=== PATIENT | male | born 1965 | race Hispanic/Latino ===

== ENCOUNTER 2020-02-16 08:10 | Emergency (ER) | payer SELFPAY, OTHER ==
[2020-02-16] MEDS ORDERED: NA CHLORIDE 0.9% 1,000 ML ONE (08:41)
[2020-02-16 09:24] LABS: Urine Blood NEGATIVE (NEG); Urine Glucose NEGATIVE (NEG); Urine Protein TRACE (NEG); Urine Specific Gravity 1.015 (1.005-1.030)
[2020-02-16 09:33] LABS: Urine Bacteria NONE SEEN /HPF (NONE SEEN); Urine Culture Reflex Order REFLEXED; Urine Mucus LIGHT /HPF (NONE SEEN); Urine RBC NONE SEEN /HPF (NONE SEEN)
[2020-02-16 09:41] LABS: Absolute Lymphocytes (CBC) 1.1 K/uL (0.7-4.9); Basophils % 0.4 % (0-1.3); Lymphocytes % 21.6 % (15.3-44.8); MPV 10.7 fL (7.6-11.3); RBC Red Blood Cell Count 4.85 M/uL (4.33-5.43)
[2020-02-16 09:55] LABS: BUN Blood Urea Nitrogen 12 mg/dL (7-18); Bicarbonate 24 mmol/L (21-32); Glucose Level 301 mg/dL (74-106); Potassium 4.1 mmol/L (3.5-5.1); Sodium Level 139 mmol/L (136-145)
--- NOTE | 2020-02-16 10:07 | ER ---
Nurse's Notes [facility] Name: Srinivasa Baugh Age: 54 yrs Sex: Male : 1965 Arrival Date: 02/16/2020 Time: 08:14 Bed 15 Private MD: Diagnosis: Fever, unspecified;Hyperglycemia, unspecified Presentation: 02/15 08:15 Chief complaint: Patient states: fever up to 100.0 F x 2 days ago. Pt denies sore aa5 throat, denies cough, denies SOB, denies N/V/D. Pt also c/o right hip pain. Pt also reports dizziness since today. 08:15 Coronavirus screen: Patient denies a cough. Patient denies shortness of breath or aa5 difficulty breathing. Patient denies travel on a cruise ship or to a country the [facility] currently lists as an affected area. Patient denies contact with known and/or suspected case of COVID-19. Patient instructed to continue to wear a mask when interacting with others. Patient moved to private room, placed in contact and droplet isolation with eye protection until further assessment. Pt reports low grade fever. Ebola Screen: Patient negative for fever greater than or equal to 101.5 degrees Fahrenheit, and additional compatible Ebola Virus Disease symptoms. Initial Sepsis Screen: Does the patient meet any 2 criteria? No. Patient's initial sepsis screen is negative. Does the patient have a suspected source of infection? No. Patient's initial sepsis screen is negative. Risk Assessment: Do you want to hurt yourself or someone else? Patient reports no desire to harm self or others. Onset of symptoms was January 2020. 08:15 Method Of Arrival: Ambulatory aa5 08:15 Acuity: GARY 3 aa5 Historical: - Allergies: 08:15 No Known Allergies; aa5 - PMHx: 08:15 Hypertension; Diabetes - NIDDM; Hyperlipidemia; aa5 - Immunization history:: Flu vaccine is not up to date. - Social history:: Smoking status: Patient denies any tobacco usage or history of. - Family history:: not pertinent. - Hospitalizations: : No recent hospitalization is reported. Screenin:59 Abuse screen: Denies threats or abuse. Denies injuries from another. Nutritional jr10 screening: No deficits noted. Tuberculosis screening: No symptoms or risk factors identified. Fall Risk IV access (20 points). Assessment: 08:55 General: Appears in no apparent distress. comfortable, Behavior is calm, cooperative, jr10 appropriate for age. Pain: Denies pain. Neuro: Reports dizziness, that started this morning, denies n/v, CARRION or visual changes associated with dizziness. Cardiovascular: No deficits noted. Denies chest pain. Respiratory: No deficits noted. Breath sounds are clear bilaterally. Denies cough, shortness of breath. GI: Reports decreased sense in taste and smell noted since friday Patient currently denies diarrhea, intolerance of fluids, intolerance of food, nausea, vomiting. : No deficits noted. Derm: No deficits noted. Musculoskeletal: No deficits noted. Vital Signs: 08:15 BP 166 / 105; Pulse 85; Resp 16 S; Temp 99.4(O); Pulse Ox 100% on R/A; Weight 71.21 kg aa5 (R); Height 5 ft. 2 in. (157.48 cm) (R); Pain 5/10; 08:57 BP 166 / 105; Pulse 77; Resp 20; Pulse Ox 99% on R/A; Pain 0/10; jr10 09:18 BP 141 / 92; Pulse 75; Resp 20; Pulse Ox 99% ; jr10 10:23 BP 128 / 86; Pulse 77; Resp 20; Temp 99.1; Pulse Ox 99% ; Pain 0/10; jr10 08:15 Body Mass Index 28.72 (71.21 kg, 157.48 cm) aa5 ED Course: 08:14 Patient arrived in ED. mr 08:15 Delvin Mancini MD is Attending Physician. rn 08:15 Arm band placed on. aa5 08:27 Barbara Vivar RN is Primary Nurse. jr10 08:28 Triage completed. aa5 08:59 Patient has correct armband on for positive identification. Placed in gown. Bed in low jr10 position. Call light in reach. Side rails up X2. 08:59 No provider procedures requiring assistance completed. Inserted saline lock: 20 gauge jr10 in right hand, using aseptic technique. IV Flushed. 10:30 IV discontinued, No redness/swelling at site. Pressure dressing applied. jr10 Administered Medications: 08:54 Drug: NS 0.9% 1000 ml Route: IV; Rate: 1000 ml; Site: right hand; jr10 10:00 Follow up: Response: No adverse reaction; IV Status: Completed infusion jr10 Outcome: 10:05 Discharge ordered by . rn 10:29 Discharged to home ambulatory. jr10 10:29 Condition: good 10:29 Discharge instructions given to patient, Demonstrated understanding of instructions, follow-up care. 10:30 Patient left the ED. jr10 Addendum: 02/17/2020 18:45 Addendum: COVID-19 Result: Positive result giiven to ED physician to notify pt. ronit g Physician: Lew Prieto MD Physician was able to contact pt and pt was notified of positive COVID-19 swab result. Physician answered pt questions. Signatures: Leonardo Chowdhury RN RN Mariama Rdoriguez Roman, MD MD rn Calderon, Audri RN RN aa5 Barbara Vivar RN RN jr10 Corrections: (The following items were deleted from the chart) 19:48 19:47 Addendum: COVID-19 Result: Positive result giiven to ED physician to notify pt. sg Physician: Lew Prieto MD Physician was able to contact pt and pt was notified of positive COVID-19 swab result. Physician answered pt questions. sg
--- NOTE | 2020-02-16 10:07 | EDPHYS ---
Physician Documentation [facility] Name: Srinivasa Baugh Age: 54 yrs Sex: Male : 1965 Arrival Date: 02/16/2020 Time: 08:14 Bed 15 Private MD: ED Physician Delvin Mancini HPI: 02/15 08:23 This 54 yrs old Male presents to ER via Unassigned with complaints of Fever. rn 08:23 The patient reports fever, that was measured at 100 degrees Fahrenheit. Onset: The rn symptoms/episode began/occurred 2 day(s) ago. Modifying factors: there are no obvious modifying factors. Severity of symptoms: At their worst the symptoms were mild in the emergency department the symptoms are unchanged. The patient has not experienced similar symptoms in the past. Reports 2 days of fever, tmax 100, assoc with lightheadedness, no headache/syncope/focal neuro complaint/sore throat/congestion/cough/sob/abd pain/vomiting/diarrhea/rash. Does report increased urinary frequency but attributes it to elevated blood sugar, has been running in [employer] lately. Has been working, and son exposed to positive COVID-19 patient at workplace. . Historical: - Allergies: 08:15 No Known Allergies; aa5 - PMHx: 08:15 Hypertension; Diabetes - NIDDM; Hyperlipidemia; aa5 - Immunization history:: Flu vaccine is not up to date. - Social history:: Smoking status: Patient denies any tobacco usage or history of. - Family history:: not pertinent. - Hospitalizations: : No recent hospitalization is reported. ROS: 08:23 Constitutional: Negative for chills, and weight loss, Eyes: Negative for injury, pain, rn redness, and discharge, Neck: Negative for injury, pain, and swelling, Cardiovascular: Negative for chest pain, palpitations, and edema, Respiratory: Negative for shortness of breath, cough, wheezing, and pleuritic chest pain, Abdomen/GI: Negative for abdominal pain, nausea, vomiting, diarrhea, and constipation, Back: Negative for injury and pain, : Negative for injury, bleeding, discharge, and swelling, MS/Extremity: Negative for injury and deformity, Skin: Negative for injury, rash, and discoloration, Neuro: Negative for headache, weakness, numbness, tingling, and seizure. Exam: 08:23 Constitutional: This is a well developed, well nourished patient who is awake, alert, rn and in no acute distress. Head/Face: Normocephalic, atraumatic. ENT: NO stridor Cardiovascular: Regular rate and rhythm. No pulse deficits. Respiratory: No increased work of breathing, no retractions or nasal flaring. Abdomen/GI: soft, non-tender MS/ Extremity: Pulses equal, no cyanosis. Neurovascular intact. Full, normal range of motion. Equal circumference. Neuro: Awake and alert, GCS 15, oriented to person, place, time, and situation. Cranial nerves II-XII grossly intact. Motor strength 5/5 in all extremities. Sensory grossly intact. Cerebellar exam normal. Normal gait. Vital Signs: 08:15 BP 166 / 105; Pulse 85; Resp 16 S; Temp 99.4(O); Pulse Ox 100% on R/A; Weight 71.21 kg aa5 (R); Height 5 ft. 2 in. (157.48 cm) (R); Pain 5/10; 08:57 BP 166 / 105; Pulse 77; Resp 20; Pulse Ox 99% on R/A; Pain 0/10; jr10 09:18 BP 141 / 92; Pulse 75; Resp 20; Pulse Ox 99% ; jr10 10:23 BP 128 / 86; Pulse 77; Resp 20; Temp 99.1; Pulse Ox 99% ; Pain 0/10; jr10 08:15 Body Mass Index 28.72 (71.21 kg, 157.48 cm) aa5 MDM: 08:15 Patient medically screened. rn 10:04 Differential diagnosis: viral Infection, UTI, COVID. Data reviewed: vital signs, nurses rn notes, lab test result(s), and as a result, I will discharge patient. Counseling: I had a detailed discussion with the patient and/or guardian regarding: the historical points, exam findings, and any diagnostic results supporting the discharge/admit diagnosis, lab results, the need for outpatient follow up, to return to the emergency department if symptoms worsen or persist or if there are any questions or concerns that arise at home. Special discussion: I discussed with the patient/guardian in detail that at this point there is no indication for admission to the hospital. It is understood, however, that if the symptoms persist or worsen the patient needs to return immediately for re-evaluation. ED course: Pt with mild hyperglycemia, no AG or acidosis, no ketones in urine, neg UA for infection, tested for covid given possible exposure, loss of taste and smell, and low grade fever, will call with results. Until results obtained, needs to quarantine to decrease spread. . 02/15 08:23 Order name: COVID-19 rn 02/15 08:23 Order name: CBC with Diff; Complete Time: 09:52 rn 02/15 08:23 Order name: Basic Metabolic Panel; Complete Time: 10:04 rn 02/15 08:23 Order name: Urine Microscopic Only; Complete Time: 09:52 rn 02/15 09:12 Order name: Urine Dipstick--Ancillary (enter results); Complete Time: 09:52 bd 02/15 09:34 Order name: Urine Culture [facility] 02/15 08:23 Order name: IV Start; Complete Time: 08:54 rn 02/15 08:23 Order name: Urine Dipstick-Ancillary (obtain specimen); Complete Time: 09:15 02/15 09:16 Order name: Labs - recollect needed: recollect cbc and c7; Complete Time: 09:36 bd Administered Medications: 08:54 Drug: NS 0.9% 1000 ml Route: IV; Rate: 1000 ml; Site: right hand; [facility] [place] 10:00 Follow up: Response: No adverse reaction; IV Status: Completed infusion jr10 Disposition: 02/16/20 10:05 Discharged to Home. Impression: Fever, unspecified, Hyperglycemia, unspecified. - Condition is Stable. - Discharge Instructions: Fever, Adult, Hyperglycemia, COVID-19. - Medication Reconciliation Form, Thank You Letter, Antibiotic Education, Prescription Opioid Use form. - Work release form (02/16/20 11:11). kb - Follow up: Private Physician; When: As needed; Reason: Recheck today's complaints, Re-evaluation by your physician. - Problem is new. - Symptoms have improved. Signatures: Dispatcher [employer] EDMS Kirstie Kemp Roman, MD MD rn Calderon, Audri, RN RN aa5 Barbara Vivar, RN RN jr10 Graciela Escalera COP[employer]ITER[employer]kb Corrections: (The following items were deleted from the chart) 10:30 10:05 02/16/2020 10:05 Discharged to Home. Impression: Fever, unspecified; jr10 Hyperglycemia, unspecified. Condition is Stable. Forms are Medication Reconciliation Form, Thank You Letter, Antibiotic Education, Prescription Opioid Use. Follow up: Private Physician; When: As needed; Reason: Recheck today's complaints, Re-evaluation by your physician. Problem is new. Symptoms have improved. rn
[2020-02-16 20:14] VITALS: O2SAT 99
[2020-02-16 20:17] VITALS: BP 128/86; TEMP 99.1
== END 2020-02-16 10:30 | disposition home or self-care (01) ==
LOC: ER 08:10
DX: U07.1 COVID-19 (principal); R50.9 Fever, unspecified; E11.65 Type 2 diabetes mellitus with hyperglycemia
CPT/HCPCS: 36415; 80048; 81003; 81015; 85025; 87086; 87088; 96360; 99283; J7030; U0001

== ENCOUNTER 2020-09-17 10:22 | Emergency (ER) | payer OTHER, SELFPAY ==
--- NOTE | 2020-09-17 11:33 | EDPHYS ---
Physician Documentation [facility] Name: Srinivasa Baugh Age: 55 yrs Sex: Male : 1965 Arrival Date: 09/17/2020 Time: 10:24 Bed 23 Private MD: ED Physician Delvin Mancini HPI: 09/17 11:28 This 55 yrs old Male presents to ER via Ambulatory with complaints of Boil. pm1 11:28 The patient presents with an abscess of the thoracic area. Description: draining, pm1 swollen. Onset: The symptoms/episode began/occurred 1 month(s) ago. Possible cause(s): irritated his prior sebaceous cyst. Associated signs and symptoms: Pertinent negatives: fever. Modifying factors: the symptoms are aggravated by squeezing the lesion and expressing the contents, touching. Severity of symptoms: in the emergency department the symptoms are unchanged. The patient has not experienced similar symptoms in the past. The patient has not recently seen a physician. Patient bumped his sebaceous cyst against some furniture and irritated the cyst. drainage present . Historical: - Allergies: 10:49 No Known Allergies; ca1 - PMHx: 10:49 Diabetes - NIDDM; Hyperlipidemia; Hypertension; ca1 - PSHx: 10:49 None; ca1 - Immunization history:: Flu vaccine is up to date. - Social history:: Smoking status: Patient denies any tobacco usage or history of. ROS: 11:28 Constitutional: Negative for fever, chills, and weight loss, Cardiovascular: Negative pm1 for chest pain, palpitations, and edema, Respiratory: Negative for shortness of breath, cough, wheezing, and pleuritic chest pain, MS/Extremity: Negative for injury and deformity. 11:28 Neuro: Negative for headache, weakness, numbness, tingling, and seizure. 11:28 Skin: Positive for abscess, of the thoracic area. Exam: 11:28 Constitutional: This is a well developed, well nourished patient who is awake, alert, pm1 and in no acute distress. Head/Face: Normocephalic, atraumatic. 11:28 Cardiovascular: Exam negative for acute changes, Rate: normal, Rhythm: regular, Pulses: no pulse deficits are appreciated. 11:28 Respiratory: Exam negative for acute changes, respiratory distress, shortness of breath. 11:28 Skin: abscess, of the thoracic area, with drainage, sebaceous, no surrounding cellulitis. open would present at center of cyst. 11:28 Neuro: Exam negative for acute changes, Orientation: is normal, Mentation: is normal, Motor: is normal, moves all fours. Vital Signs: 10:47 BP 180 / 96; Pulse 95; Resp 18 S; Temp 97.6(TE); Pulse Ox 99% on R/A; Weight 71.67 kg ca1 (R); Height 5 ft. 2 in. (157.48 cm); Pain 5/10; 10:47 Body Mass Index 28.90 (71.67 kg, 157.48 cm) ca1 MDM: 11:26 Patient medically screened. pm1 11:31 Data reviewed: vital signs. Counseling: I had a detailed discussion with the patient pm1 and/or guardian regarding: the historical points, exam findings, and any diagnostic results supporting the discharge/admit diagnosis, the need for outpatient follow up, for definitive care, a general surgeon, for sebaceous cyst removal, to return to the emergency department if symptoms worsen or persist or if there are any questions or concerns that arise at home. 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 No history of prescriptions. pm1 Administered Medications: 11:40 Drug: [place] 5 mg-325 mg 1 tabs Route: PO; iw Disposition: 13:11 Co-signature as Attending Physician, Delvin Mancini MD. rn Disposition: 09/17/20 11:32 Discharged to Home. Impression: Cutaneous abscess of back [any part, except buttock]. - Condition is Stable. - Discharge Instructions: Skin Abscess. - Prescriptions for Bactroban 2 % Topical Ointment - Apply to affected area 1 application by TOPICAL route every 12 hours; 30 gram. Tylenol- Codeine #3 300-30 mg Oral Tablet - take 2 tablets by ORAL route every 6 hours As needed; 20 tablet. Bactrim DS 800- 160 mg Oral Tablet - take 1 tablet by ORAL route every 12 hours for 10 days; 20 tablet. - Medication Reconciliation Form, Thank You Letter, Antibiotic Education, Prescription Opioid Use, Work release form form. - Follow up: Emergency Department; When: As needed; Reason: Worsening of condition. Follow up: Private Physician; When: 2 - 3 days; Reason: Recheck today's complaints, Continuance of care, Re-evaluation by your physician. - Problem is new. - Symptoms have improved. Signatures: Hawa Pope RN RN iw Delvin Mancini MD MD rn Marinas, Patrick, RUBEN JAVA LEAD pm1 Елена Lopez RN RN ca1 Corrections: (The following items were deleted from the chart) 11:44 11:32 09/17/2020 11:32 Discharged to Home. Impression: Cutaneous abscess of back [any iw part, except buttock]. Condition is Stable. Forms are Medication Reconciliation Form, Thank You Letter, Antibiotic Education, Prescription Opioid Use. Follow up: Emergency Department; When: As needed; Reason: Worsening of condition. Follow up: Private Physician; When: 2 - 3 days; Reason: Recheck today's complaints, Continuance of care, Re-evaluation by your physician. Problem is new. Symptoms have improved. pm1
--- NOTE | 2020-09-17 11:33 | ER ---
Nurse's Notes [facility] Name: Srinivasa Baugh Age: 55 yrs Sex: Male : 1965 Arrival Date: 09/17/2020 Time: 10:24 Bed 23 Private MD: Diagnosis: Cutaneous abscess of back [any part, except buttock] Presentation: 09/17 10:47 Chief complaint: Patient states: abscess on mid back, center x 2 weeks. Coronavirus ca1 screen: Client denies travel out of the [place] in the last 14 days. At this time, the client does not indicate any symptoms associated with coronavirus-19. Ebola Screen: Patient negative for fever greater than or equal to 101.5 degrees Fahrenheit, and additional compatible Ebola Virus Disease symptoms Patient denies exposure to infectious person. Patient denies travel to an Ebola-affected area in the 21 days before illness onset. No symptoms or risks identified at this time. Initial Sepsis Screen: Does the patient meet any 2 criteria? No. Patient's initial sepsis screen is negative. Does the patient have a suspected source of infection? No. Patient's initial sepsis screen is negative. Risk Assessment: Do you want to hurt yourself or someone else? Patient reports no desire to harm self or others. Onset of symptoms was September 17, 2020. 10:47 Method Of Arrival: Ambulatory ca1 10:47 Acuity: GARY 4 ca1 Historical: - Allergies: 10:49 No Known Allergies; ca1 - PMHx: 10:49 Diabetes - NIDDM; Hyperlipidemia; Hypertension; ca1 - PSHx: 10:49 None; ca1 - Immunization history:: Flu vaccine is up to date. - Social history:: Smoking status: Patient denies any tobacco usage or history of. Screenin:26 Abuse screen: Denies threats or abuse. Denies injuries from another. Nutritional iw screening: No deficits noted. Tuberculosis screening: No symptoms or risk factors identified. Fall Risk None identified. Assessment: 11:25 General: Appears in no apparent distress. Behavior is calm, cooperative. Pain: iw Complains of pain in back. Neuro: Level of Consciousness is awake, alert, obeys commands, Oriented to person, place, time, situation, Moves all extremities. Cardiovascular: Patient's skin is warm and dry. Respiratory: Respiratory effort is even, unlabored, Respiratory pattern is regular, symmetrical. Derm: Abscess located on thoracic area is quarter sized, was lanced by patient prior to arrival. Vital Signs: 10:47 BP 180 / 96; Pulse 95; Resp 18 S; Temp 97.6(TE); Pulse Ox 99% on R/A; Weight 71.67 kg ca1 (R); Height 5 ft. 2 in. (157.48 cm); Pain 5/10; 10:47 Body Mass Index 28.90 (71.67 kg, 157.48 cm) ca1 ED Course: 10:24 Patient arrived in ED. ag5 10:49 Triage completed. ca1 10:49 Arm band placed on right wrist. ca1 11:09 Hawa Pope, ASHLEY is Primary Nurse. iw 11:18 Tree Ingram NP is PHCP. pm1 11:18 Delvin Mancini MD is Attending Physician. pm1 Administered Medications: 11:40 Drug: [place] 5 mg-325 mg 1 tabs Route: PO; iw Outcome: 11:32 Discharge ordered by . pm1 11:44 Patient left the ED. iw Signatures: Hawa Pope, ASHLEY RN iw Tree Ingram NP ASSOCIATE DRAFTER pm1 Елена Lopez RN RN [facility] Tae Lipscomb ag5
[2020-09-17] MEDS ORDERED: HYDROCODONE/APAP 5/325 MG TAB ONE (11:52)
[2020-09-17 12:15] VITALS: BP 180/96; TEMP 97.6; O2SAT 99
== END 2020-09-17 11:44 | disposition home or self-care (01) ==
LOC: ER 10:22
DX: L02.212 Cutaneous abscess of back [any part, except buttock and flank] (principal); I10 Essential (primary) hypertension
CPT/HCPCS: 99282